=== PATIENT | male | born 1965 | race Two or more races ===

== ENCOUNTER → 2021-09-07 07:26 | Outpatient (CLI) | payer OTHER | END | disposition home or self-care (01) | LOC: NUCLEAR 07:26 | PROVIDERS: ATTEND General Practice | DX: C22.0 Liver cell carcinoma (principal) ==

== ENCOUNTER 2022-03-15 08:50 | Outpatient (CLI) | payer OTHER | END 2022-03-15 08:58 | disposition home or self-care (01) | LOC: TOM 08:50 | DX: C22.7 Other specified carcinomas of liver (principal) ==